=== PATIENT | male | born 1975 | race African-American/Black ===

== ENCOUNTER 2019-12-12 10:50 | Emergency (ER) | payer OTHER ==
[2019-12-12 10:53] VITALS: BMI 25.0
--- NOTE | 2019-12-12 10:59 | PDOC ---
History of Present Illness - General Chief Complaint: Nausea Stated Complaint: VOMITING/ROMMEL Time Seen by Provider: 12/12/19 10:59 Past History - Medical History Allergies/Adverse Reactions: Allergies Allergy/AdvReac Type Severity Reaction Status Date / Time No Known Allergies Allergy Verified 12/12/19 10:53 COPD: No - Psycho-Social/Smoking History Smoking History: Current every day smoker Information on smoking cessation initiated: No - Substance Abuse Hx (Audit-C & DAST Scrn) How often the patient has a drink containing alcohol: 2-3 times / week Score: In Men: 4 or > Positive; In Women: 3 or > Positive: 3 Screen Result (Pos requires Nsg. Audit-10AR): Negative *Physical Exam - Vital Signs Last Vital Signs Temp Pulse Resp BP Pulse Ox 100.1 F H 83 18 142/94 100 12/12/19 10:51 12/12/19 10:51 12/12/19 10:51 12/12/19 10:51 12/12/19 10:51 Heart Score/ECG Review - History History: Slightly suspicious - Electrocardiogram EKG: Non specific repolarization disturbance - Age Age: 45-65 - Risk Factors Risk Factors Heart Score: Yes Smoking History Based on the list above the patient has:: 1-2 risk factors - Troponin Troponin: </= normal limit - Score Heart Score - Total: 3 ED Treatment Course - LABORATORY CBC & Chemistry Diagram: 12/12/19 11:45 12/12/19 11:45 Medical Decision Making - Medical Decision Making 12/12/19 11:22 HPI: 44yo M hx alcohol abuse (years, daily 2 forties), MJ use (daily, last use ye , natural), no PMD/poor health maintenance, presents from home with c/o gradual onset nausea and spitting up (no emesis, just dry heaving and spitting up fluids and what last ate - red okra soup) while drinking. Had drank usual 2 forties, last drink 0200. After multiple hours of dry heaving/spitting up, pt began to experience stabbing nonradiating epigastric/substernal chest pain and diaphoresis. Denies SOB. No pain meds or meds tried. Denies hx N/V or CP or CAD, FHx CAD. Denies hx detox, hx withdrawal, hx seizures, trauma, head injury, fall ( states she was present with him entire time), syncope, headache, vision changes, numbness/tingling, weakness, smoking, drug use, diarr hea, constipation, blood in stool or vomit, back pain, urinary sx, COVID, sick contacts, travel. ROS: Constitutional: Positive for diaphoresis. Negative for chills, fever, fatigue. HENT: Negative for sore throat, rhinorrhea, congestion. Eyes: Negative for visual disturbance. Respiratory: Negative for shortness of breath, cough, and wheezing. Cardiovascular: Positive for chest pain. Negative for palpitations, and leg swelling. Gastrointestinal: Positive for epigastric pain, nausea, dry heaving. Negative for blood in stool, constipation, diarrhea, and vomiting. Genitourinary: Negative for dysuria, flank pain, and hematuria. Musculoskeletal: Negative for myalgias, back pain, and neck pain. Skin: Negative for rash. Neurological: Negative for light-headedness, dizziness, vertigo, syncope, weak ness, numbness and headaches. Psychiatric/Behavioral: Negative for behavioral problems and confusion. PE: Gen: Alert, NAD, uncomfortable-appearing, writhing on stretcher HEENT: PERRL, EOMI, dry MM, NCAT. No conjunctival pallor. Sclera are non- icteric. Oropharynx is clear. CV: Regular rate and rhythm. No murmurs, rubs, or gallops. PULM: No resp distress. CTAB, no wheezes, rales, or rhonchi. ABD: soft, NT/ND, no rebound tenderness or guarding, no CVA tenderness. BACK: No TTP of c/t/l-spine. No step-offs or deformities. MSK: No bony deformities. 2+ pulses in all extremities. NEURO: AAOx3. PERRL. CN 2-12 intact. 5/5 strength in all extremities. Sensation to light touch intact in all extremities. No pronator drift. No abnormal nystagmus. EXTREMITIES: No cyanosis. No clubbing. No edema. No calf tenderness. PSYCH: Normal mood and thought pattern. SKIN: Warm and dry. Normal capillary refill. No rashes. No jaundice. MDM: 44yo M hx alcohol abuse (years, daily 2 forties), MJ use (daily, last use yesterday, natural), no PMD/poor health maintenance, presents from home with c/o gradual onset nausea and spitting up (no emesis, just dry heaving and spitting up fluids and what last ate - red okra soup) while drinking since 0200. Hemodynamically stable, febrile, benign abdomen, writhing on stretcher. Ddx: ACS/WI (HEART score 3), dissection, howard mcdonald/esophageal rupture, pancreatitis, gastritis, PUD, intox, withdrawal, mesenteric ischemia, covid, viral syndrome, PNA, UTI, infection, metabolic derangement, anemia -EKG -CXR -CBC,CMP,Cardiac profile,Lipase,UA/UC/Utox,alcohol,coags,lact,inflammatory markers,covid -CTA chest/abdomen/pelvis -IVF -Pain management: ofirmev -Dispo: pending workup and reassessment, likely d/c home Labs reviewed. No concerning findings. Notable for lact 2.7, +MJ and opiates (morphine given prior to utox). EKG reviewed: NSR, 83bpm, NC interval 164ms, QTc 477ms, minimal voltage criteria for LVH, no TWIs, no ST elevations or depressions 12/12/19 13:59 Ofirmev temporarily improved pain, but then pt became diaphoretic, writhing, pain resumed. Morphine temporarily improved pain, but then pt became diaphoretic, writhing, pain resumed. -Additional 4 morphine -Pepcid -Maalox 12/12/19 15:44 CTA reviewed: no e/o dissection or aneurysm. Markedly thickened distal two thirds of esophagus. Right paratracheal air possible pneumomediastinum and possible esophageal rupture. -Unasyn 3 -Gentamicin 100 -Clindamycin 900 Repeat lact 2.5, 2nd trop neg. Pt still in pain -4 morphine Pt remains hemodynamically stable. Discussed with surgeon Dr Granados - needs emergent tx to tertiary care center. Calling [facility] for cardiothoracic surgery. Discussed dx with pt. Pt consented verbally to transfer, pt requested to sign form due to discomfort, consent signed. Pt accepted for tx, ETA 1640. 12/12/19 16:32 Discussed case with cardiothoracic surgeon Dr Abraham. Discharge - Discharge Information Problems reviewed: Yes Clinical Impression/Diagnosis: Esophageal rupture Chest pain Qualifiers: Chest pain type: unspecified Qualified Code(s): R07.9 - Chest pain, unspecified Vomiting Qualifiers: Vomiting type: unspecified Vomiting Intractability: unspecified Nausea presence: with nausea Qualified Code(s): R11.2 - Nausea with vomiting, unspecified Condition: Stable Disposition: TRANSFER ACUTE CARE/OTHER HOSP - Admission No - Follow up/Referral - Patient Discharge Instructions - Post Discharge Activity - Transfer to Acute Care Facility Receiving Facility Name: [facility]
[2019-12-12] MEDS ORDERED: SODIUM CHLORIDE 0.9% 500 ML INFUS.BAG IV ONE (11:12)
[2019-12-12] MEDS ORDERED: ACETAMINOPHEN 1000 MG/100 ML VIAL (NON FORMULARY) IVPB ONE (11:12)
[2019-12-12] MEDS ORDERED: ONDANSETRON 4 MG/2 ML VIAL IVPUSH ONE (11:12)
[2019-12-12] MEDS ORDERED: ACETAMINOPHEN INJECTION 100 ML IVPB ONE (12:11)
[2019-12-12 12:41] LABS: BASO % 0.6 % (0-2.0); EOS % 0.1 % (0-4.5); HEMOGLOBIN 17.2 GM/dL (11.7-16.9); LYMPH % 12.9 % (8-40); MCH 30.2 pg (25.7-33.7); MCHC 33.1 g/dl (32.0-35.9); MEAN CELL VOLUME 91.1 fl (80-96); MEAN PLT VOLUME 8.5 fl (7.5-11.1); MONO % 6.7 % (3.8-10.2); NEUT % 79.7 % (42.8-82.8); PLATELET COUNT 216 K/MM3 (134-434); RBC 5.71 M/mm3 (4.00-5.60); RDW 13.8 % (11.9-15.9); WHITE BLOOD COUNT 9.4 K/mm3 (4.0-10.0)
[2019-12-12 12:46] LABS: INR 0.96 (0.83-1.09); PROTHROMBIN TIME (PATIENT) 11.3 SEC (9.7-13.0)
[2019-12-12 12:48] LABS: ACTIVATED PTT 25.8 SECONDS (25.2-36.5)
[2019-12-12 13:04] LABS: ALK PHOS 86 U/L (45-117); ANION GAP 11 MMOL/L (8-16); BILIRUBIN,TOTAL 0.5 mg/dL (0.2-1); BLOOD UREA NITROGEN 11.8 mg/dL (7-18); CALCIUM 9.7 mg/dL (8.5-10.1); CHLORIDE 96 mmol/L (98-107); CO2 23 mmol/L (21-32); CREATININE 1.2 mg/dL (0.55-1.3); LIPASE 96 U/L (73-393); PHOSPHOROUS 1.8 mg/dL (2.5-4.9); POTASSIUM 3.9 mmol/L (3.5-5.1); SGOT/AST 22 U/L (15-37); SGPT/ALT 30 U/L (13-61); SODIUM 131 mmol/L (136-145); TOT PROT 8.3 g/dl (6.4-8.2)
[2019-12-12] MEDS ORDERED: morphine CARPU-JECT 4 MG/1 ML DISP.SYRIN IVPUSH ONE ×2 (13:07→15:58)
[2019-12-12 13:08] LABS: GLUCOSE,RANDOM 163 mg/dL (74-106)
[2019-12-12] MEDS ORDERED: morphine SULFATE 4 MG/ML VIAL ONE ×2 (13:12→16:13)
[2019-12-12] MEDS ORDERED: FAMOTIDINE 20 MG/50 ML IVPB 20 MG/50 ML MG IVPB ONE ×2 (13:49→14:02)
[2019-12-12] MEDS ORDERED: MAG HYDROX/AL HYDROX/SIMETH -MYLANTA- ORAL SUSPENSION PO ONE (13:49)
[2019-12-12] MEDS ORDERED: MAG HYDROX/AL HYDROX/SIMETH 30 ML UNIT-DOSE CUP ONE (14:02)
--- NOTE | 2019-12-12 14:21 | PDOC ---
Documentation entered by Ellie Meza SCRIBE, acting as scribe for Ebonie Presley MD. Ebonie Presley MD: This documentation has been prepared by the joseeDerrick Ana, SCRIBE, under my direction and personally reviewed by me in its entirety. I confirm that the documentation accurately reflects all work, treatment, procedures, and medical decision making performed by me. Attending Attestation - Resident Resident Name: Shahla Alvarez - ED Attending Attestation I have performed the following: I have examined & evaluated the patient, The case was reviewed & discussed with the resident, I agree w/resident's findings & plan, Exceptions are as noted - HPI HPI: 12/12/19 11:05 Patient is a 44 year old male with a significant past medical history of alcohol abuse and poor health maintenance, who presents to the ED with nausea, dry heaving, and spitting up fluids. Patient also reports a stabbing chest pain which does not move and diaphoresis. Patient denies: self medicating, weakness, numbness/tingling, syncope, headache, any vision changes, SOB, diarrhea, constipation, back pain, any urinary issues, sick contacts, smoking, recreational drug use, or any other related symptoms. Allergies: NKDA - Physicial Exam PE: 12/12/19 14:16 Agree with resident exam. Patient is alert and oriented x 3 and appears uncomfortable. Writhing on the stretcher and moaning, but oriented x 3 and able to answer questions. No abdominal tenderness. Cv: rrr no m/r/g pulm: cta b/l 12/12/19 14:16 - Critical Care Time Total Critical Care Time: 30 Critical Care Statement: The care of this patient involved high complexity decision making to prevent further life threatening deterioration of the patient's condition and/or to evaluate & treat vital organ system(s) failure or risk of failure. - Medical Decision Making 12/12/19 14:18 Pt presents to the ED complaining of epigastric abdominal pain and chest pain. Given the severity of his pain, initial differential included dissection, as well as biliary disease and pancreatitis, esophageal perforation. Emergent CT angio performed to evaluate for aortic dissection and is negative for dissection, but indicates concern for esophageal perforation. Case discussed with Dr. Granados, who recommends transfer to [facility] for immediate surgery. Will intitiate transfer. 12/12/19 15:44 Discharge - Discharge Information Problems reviewed: Yes Clinical Impression/Diagnosis: Esophageal rupture Chest pain Qualifiers: Chest pain type: unspecified Qualified Code(s): R07.9 - Chest pain, unspecified Vomiting Qualifiers: Vomiting type: unspecified Vomiting Intractability: unspecified Nausea presence: with nausea Qualified Code(s): R11.2 - Nausea with vomiting, unspecified Condition: Stable Disposition: TRANSFER ACUTE CARE/OTHER HOSP - Follow up/Referral - Patient Discharge Instructions - Post Discharge Activity
[2019-12-12 14:30] LABS: EPI CELLS 13 /uL (0-25.1); HYALINE CASTS 7 /uL (0-3.1); URINE APPEARANCE CLEAR; URINE BACTERIA 184 /uL (0-1359); URINE BILIRUBIN NEGATIVE (NEGATIVE); URINE COLOR YELLOW; URINE GLUCOSE (UA) TRACE (NEGATIVE); URINE KETONE 2+ (NEGATIVE); URINE LEUK ESTERASE TRACE (NEGATIVE); URINE NITRITE NEGATIVE (NEGATIVE); URINE PROTEIN NEGATIVE (NEGATIVE); URINE RBC 1 /uL (0-23.9); URINE WBC 3 /uL (0-25.8)
[2019-12-12 14:38] LABS: COCAINE, UR NEGATIVE ng/ml (CUTOFF=300); PHENCYCLIDINE,URINE NEGATIVE ng/ml (CUTOFF=25); URINE AMPHETAMINES NEGATIVE ng/ml (CUTOFF=500); URINE BARBITURATES NEGATIVE ng/ml (CUTOFF=200)
[2019-12-12 14:41] VITALS: TEMP 98
[2019-12-12 14:41] LABS: METHADONE, UR NEGATIVE ng/ml (CUTOFF=300); URINE BENZODIAZEPINES NEGATIVE ng/ml (CUTOFF=200)
[2019-12-12 14:42] LABS: OPIATES, URI POSITIVE ng/ml (CUTOFF=300)
[2019-12-12 15:54] VITALS: BP 134/93
[2019-12-12] MEDS ORDERED: AMPICILLIN NA/SULBACTAM NA 3 GM in SODIUM CHLORIDE 100 ML IVPB ONE (16:09)
[2019-12-12] MEDS ORDERED: CLINDAMYCIN 900 MG PREMIX IVPB 900 MG/50 ML BAG IVPB ONE ×2 (16:09→16:13)
[2019-12-12] MEDS ORDERED: GENTAMICIN INJECTION 100 MG in SODIUM CHLORIDE 97.5 ML IVPB ONE (16:10)
[2019-12-12] MEDS ORDERED: GENTAMICIN 80 MG PREMIXED IVPB 80 MG/100 ML BAG IVPB ONE (16:14)
[2019-12-12] MEDS ORDERED: GENTAMICIN SO4 80 MG/2 ML VIAL ONE (16:14)
[2019-12-12 17:00] VITALS: PULSE 88
--- NOTE | 2019-12-13 18:25 | EKG ---
Test Reason : Blood Pressure : / mmHG Vent. Rate : 083 BPM Atrial Rate : 083 BPM P-R Int : 164 ms QRS Dur : 110 ms QT Int : 406 ms P-R-T Axes : 050 055 033 degrees QTc Int : 477 ms NORMAL SINUS RHYTHM MINIMAL VOLTAGE CRITERIA FOR LVH, MAY BE NORMAL VARIANT BORDERLINE ECG NO PREVIOUS ECGS AVAILABLE Confirmed by GARY REED MD ([id number]) on 12/13/2019 6:25:12 PM Referred By: Confirmed By:GARY REED MD
== END 2019-12-12 17:00 | disposition short-term general hospital (02) ==
LOC: JER 10:50
PROC: 3E033NZ Introduction of Analgesics, Hypnotics, Sedatives into Peripheral Vein, Percutaneous Approach (ICD-10-PCS; principal; 2019-12-12)
PROC: 3E033GC Introduction of Other Therapeutic Substance into Peripheral Vein, Percutaneous Approach (ICD-10-PCS; 2019-12-12)
DX: K22.3 Perforation of esophagus (principal); R07.9 Chest pain, unspecified
CPT/HCPCS: 36415; 71275-TC; 74174-TC; 80053; 80307; 81003; 82550; 82728; 83605; 83615; 83690; 83735; 84100; 84443; 84484; 85025; 85610; 85730; 86140; 86850; 86870; 86900; 86901; 86902; 87086; 93005; 93010; 99285-25; J0131; Q9967; U0003